=== PATIENT | male | born 2000 | race African-American/Black ===

== ENCOUNTER 2022-11-05 11:04 | Emergency (ER) | payer OTHER ==
[~2022-11-05] VITALS: Ht 188 cm; Wt 94.0 kg
[2022-11-05 13:28] VITALS: BP 138/69; TEMP 97.6; O2SAT 98
== END 2022-11-05 13:33 | disposition home or self-care (01) ==
LOC: M ED 11:04
DX: M54.2 Cervicalgia (principal); M54.50 Low back pain, unspecified

== ENCOUNTER 2023-09-11 16:33 | Emergency (ER) | payer OTHER ==
[~2023-09-11] VITALS: Ht 185.4 cm; Wt 95.3 kg
[2023-09-11 18:29] VITALS: BP 138/85; TEMP 97.1; O2SAT 100
[2023-09-11] MEDS ORDERED: IBUP-1022 PO (19:17)
== END 2023-09-11 19:22 | disposition home or self-care (01) ==
LOC: M ED 16:33
DX: S00.33XA Contusion of nose, initial encounter (principal); Y92.019 Unspecified place in single-family (private) house as the place of occurrence of the external cause; Y93.9 Activity, unspecified; Y99.9 Unspecified external cause status; Y04.2XXA Assault by strike against or bumped into by another person, initial encounter; Z79.1 Long term (current) use of non-steroidal anti-inflammatories (NSAID)